=== PATIENT | male | born 1945 | race Caucasian/White ===

== ENCOUNTER 2025-04-19 15:39 | Emergency (ER) | payer MEDICARE, SELFPAY ==
[2025-04-19 15:59] VITALS: BP 134/74; PULSE 68; RESP 16; TEMP 36.2; O2SAT 98; BMI 25.5
--- NOTE | 2025-04-19 19:07 | DI.CT.S_ITS ---
PROCEDURE: CT HEAD/BRAIN WO CON INDICATIONS: head injury TECHNIQUE: Noncontrast 4.5 mm thick angled axial sections acquired from the foramen magnum to the vertex, with coronal and sagittal reformats. For radiation dose reduction, the following was used: automated exposure control, adjustment of mA and/or kV according to patient size. COMPARISON: None. FINDINGS: Image quality: Diagnostic. CSF spaces: Basal cisterns are patent. No extra-axial fluid collections. The ventricles are symmetric in size and shape. Brain: No intracranial bleeds or mass effect. There is cerebral volume loss, with resultant ventricular and sulcal prominence. There are periventricular and deep white matter chronic small vessel ischemic changes. There is intracranial internal carotid artery atherosclerosis. Skull and face: Calvarium and visualized facial bones appear intact, without suspicious lesions. Sinuses: Visualized sinuses and mastoids are clear. IMPRESSION: No acute intracranial pathology. Dictated by: Jhoan Amaya M.D. on 04/19/2025 at 19:32 Approved by: Jhoan Amaya M.D. on 04/19/2025 at 19:33
--- NOTE | 2025-04-19 19:36 | ED_ITS ---
HPI - Wound/Laceration General Chief Complaint: Wound/Laceration Stated Complaint: head injury Time Seen by Provider: 04/19/25 19:07 Source: patient Mode of arrival: Ambulatory History of Present Illness HPI narrative: 79-year-old male was leaning over working on a boat earlier today, raised his head and cut right parietal scalp on an overhead ladder, sustained bleeding right-sided scalp wound. No loss of consciousness. Denies pain to his neck. No other injuries. Specifically denies pain to his neck, upper mid lower back, trunk, upper extremities, lower extremities. Denies use of blood thinner medications. Unclear date of last tetanus. Related Data Previous Rx's ?Medication ?Instructions ?Recorded cephalexin 500 mg capsule 500 mg PO QID 7 days #28 cap s 04/19/25 Allergies Allergy/AdvReac Type Severity Reaction Status Date / Time No Known Drug Allergies Allergy Verified 04/19/25 15:59 Exam Narrative Exam Narrative: GENERAL: Well-developed patient, in mild distress. HEAD: Right parietal scalp laceration, after injection, skin laceration 7 cm fairly linear, there does seem to be a small 1.5 cm galeal laceration closer to the vertex in parallel with skin laceration, no obvious foreign body material, no crepitance on palpation to scalp. EYES: Pupils equal round and reactive. Extraocular motions intact. No scleral icterus. No injection or drainage. ENT: Nose without bleeding, purulent drainage. Throat without erythema, tonsillar hypertrophy or exudate. Airway patent. NECK: Trachea midline. Non tender CARDIOVASCULAR: Regular rate and rhythm without murmurs, gallops, or rubs. RESPIRATORY: Clear to auscultation. Breath sounds equal bilaterally. No wheezes, rales, or rhonchi. GASTROINTESTINAL: Abdomen soft, non-tender, nondistended. EXTREMITIES: No edema or joint tenderness. BACK: Nontender without deformity or crepitance. No flank tenderness. NEURO: AOx3. Motor functions grossly nonfocal. SKIN: No rash or erythema of visible areas Initial Vital Signs Initial Vital Signs: Vital Signs Temperature 97.2 F L 04/19/25 15:59 Pulse Rate 68 04/19/25 15:59 Respiratory Rate 16 04/19/25 15:59 Blood Pressure 134/74 04/19/25 15:59 Pulse Oximetry 98 04/19/25 15:59 Oxygen Delivery Method Room Air 04/19/25 15:59 Procedures Laceration Repair Laceration 1: Time of procedure: 20:29 Site: scalp (Right parietal scalp) Side (If applicable): right Size (cm): 7 Description: linear Local Anesthetic: lidocaine 1% Amount of anesthesia used (mL): 10 Pre-repair: wound explored and irrigated extensively Skin layer closed with: nylon Skin layer suture size: 3-0 (Skin closure with simple interrupted 3-0 nylon Ethilon sutures x9 stitches) Number of sutures: 9 Technique: simple, interrupted Subcutaneous layer closed with: vicryl Subcutaneous layer suture size: 4-0 Number of sutures: 3 Technique: simple, interrupted (1.5 cm galea laceration closed with simple interrupted absorbable Vicryl 4-0 suture, 3 stitches.) Course Orders Ordered: Discontinued Medications Bacitracin (Bacitracin Oint 0.9 Gm Pckt) 1 applic TOP NOW ONE Stop: 04/19/25 20:28 Last Admin: 04/19/25 20:39 Dose: 1 applic Documented By: ISAIAS Bupivacaine HCl/Epinephrine Bitart (Bupivacaine 0.5% W/ Epi (Pf) 30 Ml Vial) 5 ml SUBCUT NOW ONE Stop: 04/19/25 20:10 Last Admin: 04/19/25 20:41 Dose: 5 ml Documented By: ISAIAS Diphtheria/Tetanus/Acell Pertussis (Tet,Diph,Pertuss(Acell),Vac/Pf 0.5 Ml Syringe) 0.5 ml IM .ONCE ONE Stop: 04/19/25 20:19 Last Admin: 04/19/25 20:39 Dose: 0.5 ml Documented By: ISAIAS Vital Signs Vital signs: Vital Signs - 8 hr 04/19/25 15:59 Temperature 97.2 F L Pulse Rate 68 Respiratory Rate 16 Blood Pressure 134/74 Pulse Oximetry 98 Oxygen Delivery Method Room Air MDM - Wound/Laceration Imaging Data CT scan - head: Radiologist's Impression: [address] [address] [address] Scan Report Signed Patient: Ry Acosta MR#: [id number] : 1945 Acct:[id number] Age/Sex: 79 / M Date of Service: 04/19/25 Loc: ED Accession Number: [id number] Procedure: CT head/brain wo con Ordering Provider: Eitan De Jesus MD PROCEDURE: CT HEAD/BRAIN WO CON INDICATIONS: head injury TECHNIQUE: Noncontrast 4.5 mm thick angled axial sections acquired from the foramen magnum to the vertex, with coronal and sagittal reformats. For radiation dose reduction, the following was used: automated exposure control, adjustment of mA and/or kV according to patient size. COMPARISON: None. FINDINGS: Image quality: Diagnostic. CSF spaces: Basal cisterns are patent. No extra-axial fluid collections. The ventricles are symmetric in size and shape. Brain: No intracranial bleeds or mass effect. There is cerebral volume loss, with resultant ventricular and sulcal prominence. There are periventricular and deep white matter chronic small vessel ischemic changes. There is intracranial internal carotid artery atherosclerosis. Skull and face: Calvarium and visualized facial bones appear intact, without gonzales spicious lesions. Sinuses: Visualized sinuses and mastoids are clear. IMPRESSION: No acute intracranial pathology. Dictated by: Jhoan Amaya M.D. on 04/19/2025 at 19:32 Approved by: Jhoan Amaya M.D. on 04/19/2025 at 19:33 [facility] Narrative Medical decision making narrative: 79-year-old male sustained right parietal laceration on overhead ladder on his boat, currently on sailboat vacation travel. No loss of consciousness. But significant bleeding and fairly large laceration, with small galea laceration as well. CT head ordered from triage. Moving neck well, no neck pain nor tenderness with movement or on palpation, C-spine imaging not indicated, clinically cleared. CT head noncontrast, no acute changes, no skull/calvarial fracture, no brain injury, no foreign body mentioned. See radiology report. Tetanus updated, IM Tdap given. See procedure note for right parietal scalp laceration repair. Absorbable sutures for small galea laceration, larger interrupted sutures for 7 cm skin laceration. Tolerated well. Discussion: Likely low risk for scalp laceration wound infection, however patient we will be continuing ocean going travel by haku, heading next toward [facility]. Consider filling printed prescription for cephalexin antibiotic 7 day course, to have in his cell but travel supply, should he develop wound infection during transport. Suture removal likely at 7 days, hopefully at some [place] port of call. Recheck advised if signs and symptoms infection, earlier if any change worsening symptoms or any concerns prior. Discharge Plan Departure Patient Disposition: Home Clinical Impression: Complex laceration of scalp Instructions: DI for Laceration Repair Activity Restrictions/Additional Instructions: Multilayer laceration to the right parietal scalp, sustained by bumping of the head on above sharp object, no loss of consciousness. CT head from triage showed no intracranial injuries or calvarial scalp bone injuries, nor visualized mentioned of any foreign body material. Clinically the laceration is in the right parietal area of the skin, perhaps 7 cm fairly linear, also small parallel galea laceration 1.5 cm toward the vertex same orientation as the skin laceration. Local anesthesia injection. Galea layer was closed with absorbable 4-0 Vicryl sutures times 3 simple interrupted stitches. Skin closure with 3-0 Ethilon simple interrupted sutures x9. Antibiotic ointment applied. Try to avoid showering in the next couple of days so that bacteria is not drawn down into the wound. Avoid immersion/swimming until sutures out, likely in 7 days in clinic. Consider wound check in the next 2-3 days. Return earlier to this/nearest emergency department for any change worsening symptoms or any concerns prior. You did not seem to have neck discomfort or tenderness. We would not specifically imaged the cervical spine. C-spine injury not suspected clinically. Printed prescription for cephalexin provided, if he choose to fill this, to have in your travel kit, as your saline in osteo environment, we will soon be in [place], if you want to have this medication available in case you develop signs and symptoms of wound infection. Tetanus immunization Tdap was also given, updated in the emergency room today. Prescriptions: New cephalexin 500 mg capsule 500 mg PO QID 7 Days Qty: 28 0RF Stand Alone Forms: Patient Portal/API
[2025-04-19] MEDS: TET,DIPH,PERTUSS(ACELL),VAC/PF 0.5 ML SYRINGE IM (20:39)
[2025-04-19] MEDS: BACITRACIN OINT 0.9 GM PCKT 1 APPLIC TOP (20:39)
[2025-04-19] MEDS: BUPIVACAINE 0.5% W/ EPI (PF) 30 ML VIAL 5 ML SUBCUT (20:41)
== END 2025-04-19 21:00 | disposition home or self-care (01) ==
PROVIDERS: Emergency Provider Emergency Medicine
DX: S01.01XA Laceration without foreign body of scalp, initial encounter (principal); W26.8XXA Contact with other sharp object(s), not elsewhere classified, initial encounter; Z23 Encounter for immunization
CPT/HCPCS: 12002; 70450; 90471; 99283; 99284; 90715